=== PATIENT | male | born 1990 | race African-American/Black ===

== ENCOUNTER 2018-11-16 23:19 | Emergency (ER) | payer SELFPAY ==
[2018-11-16] MEDS ORDERED: Adacel (T-DAP) 0.5 ML SYRINGE ONE (23:52)
== END 2018-11-17 00:09 | disposition home or self-care (01) ==
LOC: ERS 23:19
DX: S61.217A Laceration without foreign body of left little finger without damage to nail, initial encounter (principal); F17.200 Nicotine dependence, unspecified, uncomplicated; W26.8XXA Contact with other sharp object(s), not elsewhere classified, initial encounter
CPT/HCPCS: 12001; 90471; 90715